=== PATIENT | male | born 1995 | race Hispanic/Latino ===

== ENCOUNTER 2018-11-25 21:04 | Emergency (ER) | payer BC, MEDICAID, OTHER ==
[2018-11-25] MEDS ORDERED: IBUPROFEN 600 MG TABLET ONE (21:20)
== END 2018-11-25 22:26 | disposition home or self-care (01) ==
LOC: EDH 21:04
DX: S83.8X1A Sprain of other specified parts of right knee, initial encounter (principal); Z72.0 Tobacco use; X50.1XXA Overexertion from prolonged static or awkward postures, initial encounter; Y93.02 Activity, running; Y92.89 Other specified places as the place of occurrence of the external cause; Y99.8 Other external cause status
CPT/HCPCS: 73562